=== PATIENT | male | born 1950 | race Caucasian/White ===

== ENCOUNTER 2019-10-13 10:21 | Outpatient (CLI) | payer MEDICARE, SELFPAY ==
[2019-10-13 10:15] LABS: Basophils % 0.2 %; Eosinophils # 0.1 10^3/uL (0.0-0.8); Eosinophils % 1.9 %; Hematocrit 46.5 % (42.0-52.0); Hemoglobin 15.9 g/dL (11.7-16.6); Lymphocytes % 23.2 %; Mean Corpuscular HGB Conc 34.2 g/dL (30.0-36.0); Mean Corpuscular Hemoglobin 32.8 pg (28.0-34.0); Mean Corpuscular Volume 95.9 fL (80-94); Mean Platelet Volume 10.5 fL (7.4-10.4); Monocytes # 0.4 10^3/uL (0.2-0.9); Monocytes % 10.1 %; Neutrophils # 2.7 10^3/uL (1.8-7.7); Neutrophils % 64.4 %; Nucleated Red Blood Cells % 0 %; Platelet Count 200 10^3/cmm (130-400); Red Blood Count 4.85 10^6/uL (4.1-5.3); Red Cell Distribution Width 11.8 % (12.1-15.1); White Blood Count 4.1 10^3/uL (4.0-10.0)
== END 2019-10-13 10:22 | disposition home or self-care (01) ==
LOC: ONCMED 10:21
PROVIDERS: Family Provider Family Medicine; PCP Family Medicine; Visit Provider Internal Medicine Hematology & Oncology
DX: D72.819 Decreased white blood cell count, unspecified (principal)
CPT/HCPCS: 85025

== ENCOUNTER 2019-10-14 10:59 | Outpatient (CLI) | payer MEDICARE, SELFPAY ==
--- NOTE | 2019-10-14 11:23 | ONC FU_ITS ---
Dr. Fernandez follow up note Patient: Nicholas Lopez Unit #: [id number]: 1950 Dicatated By: April Fernandez M.D.Date of Visit:Oct 14, 2019 Onc Med Follow-up/Prog Note History of Present Illness: Mr. Nicholas Lopez, is a 69 -year-old gentleman with history of mild isolated leukopenia of unknown etiology, as per patient, he never had any issues with recurrent infections, denies alcohol use, denies any history of splenomegaly, denies any history of peripheral lymphadenopathy, denies any history of night sweats fever chills, denies any weight loss, denies any recent change in medication. His CBC done on 04/01/2019 showed white blood count 3.9 normal being 4.5-10.5 hemoglobin 15.8 hematocrit 47.3 platelets 160,000 with a neutrophil 71.5% lymphocytes 23.9%. Came for follow-up, denies any specific complaints, no fever no chills no nausea no vomiting no diarrhea constipation no night sweats, no dysuria no sore throat. Medications: Eliquis 1 Tablet (of 5 mg) Oral b.i.d., Losartan Potassium 1 Tablet (of 25 mg) Oral daily Allergies: Penicillins and Sulfa Antibiotics. Review of Systems: Constitutional - Appetite is good and weight is stable. No fever, chills, hot flashes or night sweats. Energy level is good, ENMT - No sinus congestion/drainage. No mouth sores. No sore throat. No difficulty swallowing, Hematologic/Lymphatic - No abnormal bruising or bleeding, Respiratory - No shortness of breath. No cough. No pleuritic pain or hemoptysis, Cardiovascular - No angina pain. No palpitations, Gastrointestinal - No nausea or vomiting. No heartburn or acid reflux. No diarrhea or constipation. No blood in the stool or black stools, Genitourinary (M) - No dysuria or hematuria. No urinary frequency. No urgency or incontinence, Musculoskeletal - Positive for lower abdomen/back pain, Neurologic - No headache. Positive for dizziness. Positive for numbness, Psychiatric - Positive for anxiety and stress. Vital Signs: Performed on Oct 14, 2019 11:07 Height - 70.50 in Weight - 217.0 lbs (LOW) BSA - 2.17 sq.m BMI - 30.70 (HIGH) Temperature - 97.2 F (LOW) Pulse - 62 /min Respiration - 22 /min BP - 133/84 mm(hg) O2 Sat - 97 % Pain - 6 Performance Status: 0 - Fully active, able to carry on all predisease activities without restrictions. (ECOG) Physical Examination: ENMT - No oral exudates, ulcers, masses, thrush or mucositis. Oropharynx clear. Tongue normal, Respiratory - Lungs are clear to auscultation without rhonchi or wheezing, Cardiovascular - Regular rate and rhythm of heart, Abdomen - Non-tender, non-distended, Good bowel sounds. No guarding or rebound tenderness. No pulsatile masses, Extremities - no edema. Lab/Imaging: Test performed on Jul 12, 2019 09:49 WBC 3.4 10 3/uL RBC 4.61 10 6/uL HGB 15.4 g/dL HCT 44.4 % MCV 96.3 fl MCH 33.4 pg MCHC 34.7 g/dl RDW 11.5 % Platelet Count 187 10 3/cmm MPV 10.2 fl Neutrophils 2.2 10 3/uL Lymphocytes 0.8 10 3/uL Monocytes 0.3 10 3/uL Eosinophils 0.1 10 3/uL Basophils 0.0 10 3/uL Neutrophil % 64.9 % Lymphocyte % 22.9 % Monocyte % 9.8 % Eosinophil % 1.8 % Basophils % 0.3 % Impression: History of Isolated mild leukopenia with a normal hemoglobin and platelets and differential of unknown etiology. But possibilities include but not limited to, considering his age underlying myelodysplasia cannot be ruled out, or medication induced or cyclical leukopenia of unknown significance. Plan: Discussed with patient regarding his labs white blood count 4.1 hemoglobin 15.9 crit 46.5 platelets 200,000 with a normal differential Clinically, patient is doing well with no signs symptoms suggestive of infection and no B symptoms, follow-up lab shows normalization of mild leukopenia and hemoglobin and platelet count within normal range. Clinically it appears patient may have underlying early myelodysplasia causing fluctuation in white blood count . No further workup at this point rather continue to monitor return to clinic in 4 months with CBC and if counts stay stable then we'll see him on as-needed basis. Signed By: April Fernandez M.D. <<Signature on File>>
== END 2019-10-14 11:00 | disposition home or self-care (01) ==
LOC: ONCMED 11:03
PROVIDERS: Family Provider Family Medicine; PCP Family Medicine; Visit Provider Internal Medicine Hematology & Oncology
DX: D72.819 Decreased white blood cell count, unspecified (principal); Z79.01 Long term (current) use of anticoagulants
CPT/HCPCS: G0463

== ENCOUNTER 2020-02-13 14:06 | Outpatient (CLI) | payer MEDICARE, SELFPAY ==
[2020-02-13 15:22] LABS: Basophils % 0.4 %; Eosinophils # 0.1 10^3/uL (0.0-0.8); Eosinophils % 2.4 %; Hematocrit 44.8 % (42.0-52.0); Hemoglobin 15.6 g/dL (11.7-16.6); Lymphocytes # 1.2 10^3/uL (0.8-4.8); Lymphocytes % 25.4 %; Mean Corpuscular HGB Conc 34.8 g/dL (30.0-36.0); Mean Corpuscular Hemoglobin 34.4 pg (28.0-34.0); Mean Corpuscular Volume 98.7 fL (80-94); Mean Platelet Volume 10.4 fL (7.4-10.4); Monocytes # 0.5 10^3/uL (0.2-0.9); Monocytes % 11.1 %; Neutrophils # 2.77 10^3/uL (1.8-7.7); Neutrophils % 60.3 %; Nucleated Red Blood Cells % 0 %; Platelet Count 188 10^3/cmm (130-400); Red Blood Count 4.54 10^6/uL (4.1-5.3); Red Cell Distribution Width 11.9 % (12.1-15.1); White Blood Count 4.6 10^3/uL (4.0-10.0)
== END 2020-02-13 14:07 | disposition home or self-care (01) ==
LOC: ONCMED 15:27
PROVIDERS: PCP Family Medicine; Visit Provider Internal Medicine Hematology & Oncology
DX: D72.819 Decreased white blood cell count, unspecified (principal); I10 Essential (primary) hypertension; E78.1 Pure hyperglyceridemia
CPT/HCPCS: 85025

== ENCOUNTER 2020-02-14 13:06 | Outpatient (CLI) | payer MEDICARE, SELFPAY ==
--- NOTE | 2020-02-14 13:43 | ONC FU_ITS ---
Dr. Fernandez follow up note Patient: Nicholas Lopez Unit #: [id number]: 1950 Dicatated By: April Fernandez M.D.Date of Visit:Feb 14, 2020 Onc Med Follow-up/Prog Note History of Present Illness: Mr. Nicholas Lopez, is a 69 -year-old gentleman with history of mild isolated leukopenia of unknown etiology, as per patient, he never had any issues with recurrent infections, denies alcohol use, denies any history of splenomegaly, denies any history of peripheral lymphadenopathy, denies any history of night sweats fever chills, denies any weight loss, denies any recent change in medication. His CBC done on 04/01/2019 showed white blood count 3.9 normal being 4.5-10.5 hemoglobin 15.8 hematocrit 47.3 platelets 160,000 with a neutrophil 71.5% lymphocytes 23.9%. Came for follow-up, denies any specific complaints, no fever chills, no nausea or vomiting, no diarrhea or constipation, no night sweats, no abdominal pain or fullness, no sore throat or dysuria. Medications: Eliquis 1 Tablet (of 5 mg) Oral b.i.d., Losartan Potassium 1 Tablet (of 25 mg) Oral daily Allergies: Penicillins and Sulfa Antibiotics. Review of Systems: Constitutional - Appetite is good and weight is stable. No fever, chills, hot flashes or night sweats. Energy level is good, ENMT - No sinus congestion/drainage. No mouth sores. No sore throat. No difficulty swallowing, Hematologic/Lymphatic - No abnormal bruising or bleeding, Respiratory - No shortness of breath. No cough. No pleuritic pain or hemoptysis, Cardiovascular - No angina pain. No palpitations, Gastrointestinal - No nausea or vomiting. No heartburn or acid reflux. No diarrhea or constipation. No blood in the stool or black stools, Genitourinary (M) - No dysuria or hematuria. No urinary frequency. No urgency or incontinence, Musculoskeletal - No pain reported today, Neurologic - No headache. Positive for dizziness. Positive for numbness, Psychiatric - Positive for anxiety and stress. Vital Signs: Performed on Feb 14, 2020 13:12 Height - 70.50 in Weight - 220.0 lbs (HIGH) BSA - 2.18 sq.m BMI - 31.12 (HIGH) Temperature - 98.1 F (LOW) Pulse - 79 /min Respiration - 24 /min BP - 114/70 mm(hg) O2 Sat - 94 % (LOW) Pain - 0 Performance Status: 0 - Fully active, able to carry on all predisease activities without restrictions. (ECOG) Physical Examination: ENMT - No mouth sores no thrush or jaundice, Respiratory - Lungs are clear, Cardiovascular - Regular rate and rhythm of heart, Abdomen - Soft, bowel sounds present, Extremities - No visible edema, no peripheral lymphadenopathy. Lab/Imaging: Test performed on Oct 13, 2019 08:55 WBC 4.1 10 3/uL RBC 4.85 10 6/uL HGB 15.9 g/dL HCT 46.5 % MCV 95.9 fL MCH 32.8 pg MCHC 34.2 g/dL RDW 11.8 % Platelet Count 200 10 3/cmm MPV 10.5 fL Neutrophils 2.7 10 3/uL Lymphocytes 1.0 10 3/uL Monocytes 0.4 10 3/uL Eosinophils 0.1 10 3/uL Basophils 0.0 10 3/uL Neutrophil % 64.4 % Lymphocyte % 23.2 % Monocyte % 10.1 % Eosinophil % 1.9 % Basophils % 0.2 % Impression: History of Isolated mild leukopenia with a normal hemoglobin and platelets and differential of unknown etiology. But possibilities include but not limited to, considering his age underlying myelodysplasia cannot be ruled out, or medication induced or cyclical leukopenia of unknown significance. Plan: Discussed with patient regarding his labs white blood count 4.6 hemoglobin 15.6 crit 44.8 platelets 188,000 with ANC 2700 Clinically, patient is doing well with no new signs symptoms. Her follow-up labs shows resolution of previously noted mild leukopenia, now CBC is in a normal range. No further work-up is needed, patient will follow with his PMD on regular basis and will see him on as-needed basis Signed By: April Fernandez M.D. <<Signature on File>>
== END 2020-02-14 13:07 | disposition home or self-care (01) ==
LOC: ONCMED 13:10
PROVIDERS: PCP Family Medicine; Visit Provider Internal Medicine Hematology & Oncology
DX: D72.819 Decreased white blood cell count, unspecified (principal); Z79.01 Long term (current) use of anticoagulants
CPT/HCPCS: G0463

== ENCOUNTER → 2023-04-01 10:44 | Outpatient (BNVA) | payer MEDICARE, SELFPAY | PROVIDERS: PCP Family Medicine; Visit Provider Nurse Practitioner Family | DX: L57.0 Actinic keratosis (principal); L82.0 Inflamed seborrheic keratosis; L81.4 Other melanin hyperpigmentation; D22.5 Melanocytic nevi of trunk; L85.3 Xerosis cutis; L57.8 Other skin changes due to chronic exposure to nonionizing radiation; L82.1 Other seborrheic keratosis; L91.8 Other hypertrophic disorders of the skin | CPT/HCPCS: 11200; 17000; 17003; 17110; 99213 ==

== ENCOUNTER → 2023-10-02 08:30 | Outpatient (BNVA) | payer MEDICARE, SELFPAY | PROVIDERS: PCP Family Medicine; Visit Provider Nurse Practitioner Family | DX: L82.0 Inflamed seborrheic keratosis (principal); L81.4 Other melanin hyperpigmentation; D22.5 Melanocytic nevi of trunk; L85.3 Xerosis cutis; L57.8 Other skin changes due to chronic exposure to nonionizing radiation; L82.1 Other seborrheic keratosis; L57.0 Actinic keratosis | CPT/HCPCS: 17000; 17110; 99213 ==

== ENCOUNTER → 2024-04-05 10:08 | Outpatient (BNVA) | payer MEDICARE, SELFPAY | PROVIDERS: PCP Family Medicine; Visit Provider Nurse Practitioner Family | DX: L81.4 Other melanin hyperpigmentation (principal); D22.5 Melanocytic nevi of trunk; L85.3 Xerosis cutis; L57.8 Other skin changes due to chronic exposure to nonionizing radiation; L82.1 Other seborrheic keratosis; L57.0 Actinic keratosis | CPT/HCPCS: 17000; 99213 ==

== ENCOUNTER → 2024-10-03 15:25 | Outpatient (BNVA) | payer MEDICARE, SELFPAY | PROVIDERS: PCP Family Medicine; Visit Provider Nurse Practitioner Family | DX: L81.4 Other melanin hyperpigmentation (principal); D22.5 Melanocytic nevi of trunk; L57.8 Other skin changes due to chronic exposure to nonionizing radiation; L82.1 Other seborrheic keratosis; L57.0 Actinic keratosis | CPT/HCPCS: 17000; 99213 ==

== ENCOUNTER 2025-02-24 18:30 | Emergency (ER) | payer MEDICARE, SELFPAY ==
--- OUTSIDE RECORDS SUMMARY | 2025-02-24 18:43 | XMS_ITS | Continuity of Care Document ---
Author Organization [place] Da Silva [facility] [place], LKaileyLDieudonne, [facility] ([facility]) Address [address] [place] [address] Care Team Providers Care Skiver Operator Name Role Phone DAPHNE DYER Primary Care Provider [phone] Assessment No assessment recorded. Plan of Treatment Reminders Order Date Submit Date Provider Last Modified By Organization Details Last Modified Time Details Appointments OFFICE VISIT CIPRIANO 2024 09:00A Genesis Dyer MD Not available Not available Not available Lab culture , blood 2024 025 [employer] [facility], [address], [place], [address], 02/24/2025 08:18:42 shobha sial antibod y panel, serum 2024 [facility], [address] , [place], [address], 02/24/2025 08:18:42 ronan carv[facility]al lab - F. tularen sis Ab, IgM/IgG kaleigh, S 2024 025 [facility], [address] , [place], [address], 02/24/2025 08:18:42 donald ruiz nsis, igg+igm Ab, serum 2024 025 [facility], [address] , [place], [address], 02/24/2025 08:18:42 CBC 2024 025 [facility], [address] [place] [address], [address], [place], [address], 02/17/2025 13:49:51 SARS CoV 2 (COVID- 19) Ag, QL, IA, upper respira tory specime n [address] ([facility]), [address] [place] [address], [phone], 02/17/2025 13:05:27 respira tory pathoge ns DNA and RNA panel, PCR, nasopha rynx [address] ([facility]), [address] [place] [address], [phone], 02/17/2025 13:05:28 Referral None recorde d. Procedures None recorde d. Surgeries None recorde d. Imaging XR, chest, 2 view 2024 025 [email or web address] [facility] ([facility]), [address] [place] [address], [phone], 02/20/2025 09:24:52 Medication Orders ondanse lennie HCl 8 mg tablet 2024 025 [facility] [place], [address], 02/17/2025 13:06:29 doxycyc line hyclate 100 mg capsule 2024 025 [facility] [place], [address], 02/17/2025 13:06:32 prednis one 20 mg tablet 2024 025 [facility] [place], [address], 02/17/2025 13:06:31 albuter ol sulfate HFA 90 mcg/act uation aerosol inhaler 2024 025 [facility], [address] [place], [address], 02/17/2025 13:06:27 Patient TargetsNo targets recorded. Patient InstructionsNo instructions recorded. Reason for Referral None Reported. Results Created Date Observation Date Name Description Value Unit Range Abnormal Flag Note LastModifiedBy Organization Detail LastModifiedTime 02/18/2002/17/2025 CBC WBC 5.5 x10 4.5-10 .5 Not Available [facility] [address] [facility] [address], [place], [address], 02/17/2025 13:49:51 02/18/2002/17/2025 CBC RBC 4.78 x10 4.30-5 .90 Not Available [facility] [address] [facility] [address], [place], [address], 02/17/2025 13:49:51 02/18/2002/17/2025 CBC HGB 15.7 g/dL 13.5-1 8.0 Not Available [facility] [address] [facility] [address], [place], [address], 02/17/2025 13:49:51 02/18/2002/17/2025 CBC HCT 48.3 % 35.0-6 0.0 Not Available [facility] [address] [facility] [address], [place], [address], 02/17/2025 13:49:51 02/18/2002/17/2025 CBC MCV 101.1 fL 80.0-9 9.9 high Not Available [facility] [address] [facility] [address], [place], [address], 02/17/2025 13:49:51 07/18/20 25 02/17/2025 CBC MCH 32.8 pg 27.0-3 2.0 high Not Available [facility] [address] [facility] [address], [place], [address], 02/17/2025 13:49:51 02/18/20 25 02/17/2025 CBC MCHC 32.4 g/dL 32.0-3 6.0 Not Available [facility] [address] [facility] [address], [place], [address], 02/17/2025 13:49:51 02/18/20 25 02/17/2025 CBC RDW 12.2 % 11.5-1 4.5 Not Available [facility] [address] [facility] [address], [place], [address], 02/17/2025 13:49:51 02/18/2002/17/2025 CBC plt 162.1 x10 150.0- 451.0 Not Available [facility] [address] [facility] [address], [place], [address], 02/17/2025 13:49:51 02/18/2002/17/2025 CBC lymphocytes % 25.6 % 20.0-5 0.0 Not Available [facility] [address] [facility] [address], [place], [address], 02/17/2025 13:49:51 02/18/2002/17/2025 CBC granulcytes % 67.5 % 30.0-7 0.0 Not Available [facility] [address] [facility] [address], [place], [address], 02/17/2025 13:49:51 02/18/2002/17/2025 CBC monocytes % 6.1 % 2.0-16 .0 Not Available [facility] [address] [facility] [address], [place], [address], 02/17/2025 13:49:51 07/18/20 25 02/17/2025 CBC granulcytes# 3.7 x10 Not Ann ilable [facility] [address] [facility] [address], [place], [address], 02/17/2025 13:49:51 02/18/20 25 02/17/2025 CBC lymphocytes # 1.4 x10 Not Available [facility] [address] [facility] [address], [place], [address], 02/17/2025 13:49:51 02/18/20 25 02/17/2025 CBC monocytes # 0.3 x10 Not Avai lable [facility] [address] [facility] [address], [place], [address], 02/17/2025 13:49:51 02/18/20 25 02/17/2025 respi rator y patho gens DNA and RNA panel , PCR, nasop haryn x Covid negati ve Not Available [facility] ([facility]) [address] [place] [address], [phone], 02/17/2025 12:42:51 02/18/20 25 02/17/2025 respi rator y patho gens DNA and RNA panel , PCR, nasop haryn x Rhinovirus negati ve Not Available [facility] ([facility]) [address] [place] [address], [phone], 02/17/2025 12:42:51 02/18/20 25 02/17/2025 respi rator y patho gens DNA and RNA panel , PCR, nasop haryn x Influenza A negati ve Not Available [facility] ([facility]) [address] [place] [address], [phone], 02/17/2025 12:42:51 02/18/20 25 02/17/2025 respi rator y patho gens DNA and RNA panel , PCR, nasop haryn x Influenza B negati ve Not Available [facility] ([facility]) [address] [place], [address], 02/17/2025 12:42:51 02/18/20 25 02/17/2025 respi rator y patho gens DNA and RNA panel , PCR, nasop haryn x RSV negati ve Not Available [facility] ([facility]) [address] [place], [address], 02/17/2025 12:42:51 02/15/20 25 02/13/2025 XR, ribs, unila teral , w/ PA chest No observ ation record ed. [email or web address] [facility] [address] [place], [address], 02/14/2025 12:53:49 02/18/20 25 02/17/2025 XR, chest , 2 view No observ ation record ed. [email or web address] [facility] ([facility]) [address] [place], [address], 02/17/2025 14:14:11 02/18/20 25 02/17/2025 XR, chest , 2 view No observ ation record ed. [email or web address] [facility] ([facility]) [address] [place], [address], 02/17/2025 14:12:26 Result Notes None recorded. 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 5 23:51:25 Nocturia due to benign prostatic hypertrop 495572605071 1 Active 2022 Hallie Mack [facility] 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 5 23:50:36 Screening for malignant neoplasm of colon Completed 202310/31/2024 [facility] 5 23:51:40 History of deep vein thrombosi s 720560660 Active 2024 Hallie Frederick [facility] 5 23:50:47 Acute vomiting 56394690 Active 2024 [facility] 5 13:03:18 Problem Notes None recorded. Procedures Surgical History Date Name Laterality Status Provider Name and Address Organization Details Recorded Time 4 screening for malignant neoplasm of colon completed [facility] 05/16/2024 12:43:37 4 colonoscopy completed [facility] 05/04/2023 10:05:39 repair of umbilical hernia completed [facility] 05/04/2023 10:05:05 Imaging Results None recorded. Procedure Notes None recorded. Medical Equipment None Reported. Allergies Allergen ID Allergen Name Allergen Category Reaction Reaction Severity Criticality Documentation Date Start Date Code Code System Note Provider Name and Address Organization Details Recorded Time 06939 clindamyc in hydrochlo ride medicatio n rash Not available Not available 02/28/2023 57508 RxNorm React ion: Rash; Comme nt: Recor ded 04/30 7:49A M by Hallie Farnsworth RN, Offic e Visit ; Promo citlali; Roddy swan ce: *; Reaso n: Drug aller gy; ; [facility] 3 10:02:57 83023 penicilli n V potassium medicatio n Not available Not available Not available 02/28/202353108 5 RxNorm Comme nt: Recor ded 04/30 7:49A M by Hallie Farnsworth RN, Offic e Visit ; Promo citlali; Roddy swan ce: *; Reaso n: Drug aller gy; ; [facility] 3 10:02:52 624 Product containin g penicilli n (product) medicatio n rash mild low 10/29/2022 18775 8001 SNOMED Becky Krause [facility] 4 12:27:51 625 clindamyc in Not available rash mild low 10/29/2022 2582 RxNorm Becky Krause [facility] 4 12:27:47 626 Bactrim medicatio n Not available Not available Not available 10/29/2022 90076 9 RxNorm [facility] 3 10:19:24 Medications Name Sig Start Date Stop Date Status Note LastModified by Organization Details LastModified Time doxycycli ne hyclate 100 mg capsule Take 1 capsule twice a day by oral route for 10 days. 2024 active Not Available Not Available Not Avai lable benzonata te 200 mg capsule Take 1 capsule 3 times a day by oral route as needed, for cough. 2024 active Not Available Not Available Not Avai lable ondansetr on HCl 8 mg tablet Take 1 tablet 3 times a day by oral route as needed for 7 days. 2024 active Not Available Not Available Not Avai lable prednison e 20 mg tablet Take 1 tablet every day by oral route for 5 days. 2024 active Not Available Not Available Not Avai lable losartan 25 mg tablet TAKE 1 TABLET BY MOUTH ONCE DAILY active Not Available Not Available No t Available albuterol sulfate HFA 90 mcg/actua tion aerosol inhaler Inhale 2 puffs every 4 hours by inhalati on route for 14 days. 2024 active Not Available Not Available Not Avai lable cyanocoba nicolas (vitamin B-12) daily 2019 active Not Available Not Available Not Avai lable multivita min 1 daily active Not Available Not Available Not Available Eliquis 5 mg tablet TAKE 1 TABLET BY MOUTH TWICE DAILY active Not Available Not Available No t Available Eliquis two times daily 05/04 completed 436; Recorded 03/03/20 22 8:18AM by Hiral Maya LPN (Authori shae through Daphne Dyer MD), Annotati on/Adden dum; Refill Quantity : 180; Tablet; Not Available Not Available Not Available losartan potassium (bulk) daily 05/04 completed 436; Recorded 02/29/20 22 3:08PM by Hiral Maya LPN (Authori shae through Daphne Dyer MD), Refill Request; Refill Quantity : 90; Tablet; Not Available Not Available Not Available Flowflex COVID-19 Antigen Home Test kit DIRECTED 05/04 completed Not Available Not Available Not Available Vitals Date Recorded Body height Body mass index (BMI) Body weight Body temperature Oxygen saturation Oxygen saturation in Arterial blood by Pulse oximetry Heart rate Systolic And Diastolic Provider Name and Address Organization Details Last Updated DateTime 5 177.8 cm 31.4 kg/m2 93840.7 3 g 100.6 [degF] 92 % 92 % 110 /min 130/70 mm[Hg] ASHLEY GREWAL [facility] L.LDieudonne 5 11:09:10 Social History Question Answer Notes LastModified by Organizat ion Details LastModified Time Tobacco Smoking Status Never Smoker HIRAL g[place] [facility], L.LDieudonne 05/04/2023 10:04:50 What Was The Date Of Your Most Recent Tobacco Screening? 02/13/2025 [email or web address] Information not available 02/13/2025 Sex: Unknown Functional Status Question Answer Note LastModified by Organizat ion Details LastModified Time Do you use any illicit or recreational drugs? No [email or web address] Information not available 05/04/2023 Do you or have you ever used any other forms of tobacco or nicotine? No Information not available 05/04/2023 What is your level of alcohol consumption? None [email or web address] Information not available 05/04/2023 Mental Status None recorded. Family History Relationship Description Onset Age of this Age Resolved Age Notes LastModified by Organization Details LastModified Time Mother Malignant lymphoma [email or web address] Not available 05/04 10:04:08 Father Coronary atherosclero sis Not available 05/04 10:04:18 Daughter Factor V deficiency [email or web address] Not available 09/2022 10:04:33 Medical History No medical history recorded. Immunizations Vaccine Type Date Status Note Provider Nam e and Address Organization Details Recorded Time Tdap 4 completed HIRAL gilbert [facility], MarisaLDieudonne 05/04/2023 10:02:43 pneumococcal polysaccharide PPV23 8 tracy gilbert [facility], LKaileyLKaileyCKailey 05/04/2023 10:02:43 Influenza, split virus, trivalent, preservative 8 completed HIRAL gilbert [facility], L.LKaileyCKailey 05/04/2023 10:02:43 Pneumococcal conjugate PCV 13 7 tracy gilbert [facility], L.LKaileyCKailey 05/04/2023 10:02:43 Past Encounters Encounter ID Performer Location Encounter Start Date Encounter Closed Date Diagnosis/Indication Diagnosis SNOMED-CT Code Diagnosis ICD10 Code Diagnosis Note [id number] AGUILAR FISCHER [facility] ([facility]) [address] [place] [address] 02/13/2025 12:21:10 02/13/2025 13:17:50 Accidental fall 739071193 W19.XXXA Discussed xray with pt. VSS. Pain improving. Continue deep breathing exercises every 3-4 hours while awake. Limit movements as tolerated. If you develop fever, sputum production , sob, or worsening symptoms then return. Acute cough 6220211206 33560935 R05.1 [id number] Daphne Dyer MD [facility] ([facility]) [address] [place] [address] 02/17/2025 10:46:20 02/20/2025 09:24:52 Viral upper respiratory tract infection 412349249 J06.9 Acute bronchitis 7060453 2 J20.9 Fever with chills 130080 006 R50.9 Acute vomiting 72175261 R11.10 Health Concerns Section Related Observation LastModified by Organization Detai ls LastModified Time None Recorded Concern Status LastModified by Organization Details LastModified Time None Recorded Payers Encounter Date Sequence Insurance Name Policy Number Policy Pérez Covered Member ID Pérez Member ID Guarantor Name 02/17/2025 1 [employer] (MEDICARE REPLACEMENT/A DVANTAGE - PFFS) Nicholas Lopez [id number] Nicholas Lopez Notes Date Note Type Note Provider Name and Address Organization Details Recorded Time 02/17/2025 text/html Upper Respirator y SymptomsReported by PatientUpper Respiratory SymptomsFor quality, patient reportsdry coughandwheezy cough. For associated symptoms, patient reportsshortness of breath,wheezing,fatigu e,headache, andmalaise. For location, patient reportschest. For context, patient reportsnon-smoker.ROS as noted in the HPI Daphne Dyer MD [address] [place] [address], [phone], [facility] 02/17/2025 13:06:37
--- OUTSIDE RECORDS SUMMARY | 2025-02-24 18:43 | XMS_ITS | Patient Health Record ---
Author Organization [facility] Address [address] [place] [address] Care Team Providers Care Pruner Name Role Phone Peter Cho Unavailable Allergies Allergen (clinical drug ingredient) Drug/Non Drug Allergy documented on EMR Reaction Allergy Type Onset Date Status amoxicillin Amoxicillin Unknown Drug Allergy Act laurie ampicillin Ampicillin Unknown Drug Allergy Activ e Penicillin Unknown Drug Allergy Active Reason For Referral Reason ESOPHAGEAL DYSPHAGIA Diagnosis 1 Other dysphagia (R13 .19) Referring Provider First Name Dakota Referring Provider Last Name Gomez Referring Provider Speciality Family Med icine Referred Organization [facility] Referred Provider Peter Cho Referred Address [address],[phone], Referral Priority Routine Medications Medication SIG (Take, Route, Frequency, Duration) Notes Start Date End Date Status Eliquis 5 MG Tablet as directed Orally Active Losartan Potassium 25 MG Tablet 1 tablet Orally TWICE a day Active Social History Tobacco Use: Social History Observation Description Date Details (start date - stop date) Never Smoker NA - NA Social History Depression Screening Social Info Question Answer Notes depression screening findings Findings Negative (0-4) Completed 05/17/24 PHQ-9 Little interest or pleasure in doing things Not at all Feeling down, depressed, or hopeless Not at all Trouble falling or staying asleep, or sleeping t oo much Not at all Feeling tired or having little energy Not at all Poor appetite or overeating Not at all Feeling bad about yourself, or that you are a failure, or have let yourself or your family down Not at all Trouble concentrating on thi ngs, such as reading the newspaper or watching television Not at all Moving or speaking so slowly that other people could have noticed. Or the opposite ? being so fidgety or restless that you have been moving around a lot more than usual Not at all Thoughts that you would be b dana off , or of hurting yourself in some way Not at all Total Score 0 Drugs/Alcohol: Social Info Question Answer Notes Drugs Have you used drugs other than those for medical reasons in the past 12 months? No Drug/Alcohol: Social Info Question Answer Notes AUDIT-C (Standard) Did you have a drink containing alcohol in the past year? No Points 0 Interpretation Negative Tobacco Use: Social Info Question Answer Notes Tobacco Control (Standard) Tobacco use: Nonsmoker Section Notes: 05/17/24 Problems Problem Type SNOMED Code ICD Code Onset Dates Problem Status W/U Status Risk Notes Problem Esophageal dysphagia (93117524) Esophageal dysphagia (R13.19) Active confirmed Vital Signs Heart Rate 66 /min 05/17/2024 Temperature 97.2 degrees Fahrenheit 05/17/2024 Height-cm 180.34 cm 05/17/2024 Oximetry 95 % 05/17/2024 Blood pressure diastolic 90 mm Hg 05/17/2024 Weight-kg 102.24 kg 05/17/2024 Height 71 in 05/17/2024 Blood pressure systolic 160 mm Hg 05/17/2024 Weight 225.4 lbs 05/17/2024 BMI 31.43 kg/m2 05/17/2024 Encounters Encounter Location Date Provider Diagnosis [facility] [address] [place] [phone] 05/17/2024 Peter Cho Esophageal dysphagia R13.19 and Depression screen Z13.31 [facility] [address] [place] [phone] 05/17/2024 Peter Cho Assessments Encounter Date Diagnosis (ICD Code) Assessment Notes Treatment Notes Treatment Clinical Notes Section Notes 05/17/2024 Esophageal dysphagia (ICD-10 - R13.19) -x-- to be completed at [facility] ---to be completed at [facility] ---to be completed at [facility] ---to be completed at [facility] 05/17/2024 Depression screen (ICD-10 - Z13.31) Plan Of Treatment No Information Insurance Providers Payer Name Payer Address Payer Phone Subscriber Number Group Number Insured Name Patient Relationship to Insured Coverage Start Date Coverage End Date [employer] Medicare Replacement [address] [address] [place] [phone] [id number] Self - patient is the insured [place] [address] [address] [place] [address] [id number] JARROD NIXON Self - patient is the insured Medical (General) History Medical History History ICD Code hypertension Surgical History Surgery Date(Month/Year) hernia repair
--- NOTE | 2025-02-24 18:55 | XRR_ITS ---
PROCEDURE INFORMATION: Exam: XR Chest Exam date and time: 02/24/2025 7:07 PM Age: 74 years old Clinical indication: Fever; Additional info: Fever, weak TECHNIQUE: Imaging protocol: Radiologic exam of the chest. Views: 1 view. COMPARISON: CR XR chest 2V* [id number] 02/17/2025 11:16 AM FINDINGS: Lungs: Unremarkable. No consolidation. Pleural spaces: Unremarkable. No pleural effusion. No pneumothorax. Heart/Mediastinum: Unremarkable. No cardiomegaly. Bones/joints: Unremarkable. XR/XR chest 1V portable [id number] IMPRESSION: No acute findings.
[2025-02-24 19:01] VITALS: BP 121/73; PULSE 101; RESP 16; TEMP 37.6; O2SAT 93; BMI 30.1
[2025-02-24 19:33] LABS: Hematocrit 40.6 % (37-53); Hemoglobin 14.10 g/dL (11.27-16.99); Mean Corpuscular HGB Conc 34.7 g/dL (30-55); Mean Corpuscular Hemoglobin 33.9 pg (27-33); Mean Corpuscular Volume 97.6 fl (82-101); Nucleated Red Blood Cells % 0 %; Platelet Count 178 10^3/cmm (157-399); Red Blood Count 4.16 10^6/uL (3.85-5.65); White Blood Count 6.10 10^3/uL (3.29-11.43)
[2025-02-24 19:58] LABS: Alanine Aminotransferase 34 U/L (0-41); Albumin Level 3.5 g/dL (3.5-5.2); Alkaline Phosphatase 68 U/L (40-130); Anion Gap 15.2 (5-19); Aspartate Amino Transferase 18 U/L (0-40); Blood Urea Nitrogen 14 mg/dL (8-23); Calcium 8.8 mg/dL (8.5-10.5); Carbon Dioxide 25 mmol/L (22-29); Chloride 98 mmol/L (98-107); Creatinine Clr Calc Pharmacy 73.9389; Globulin 3.4 g/dL (1.3-4.6); Glucose 128 mg/dL (65-115); Osmolality Calculated 280 mOsm/kg (285-295); Potassium 4.2 mmol/L (3.5-5.1); Sodium 134 mmol/L (136-145); Total Protein 6.9 g/dL (6.6-8.7)
[2025-02-24 19:58] LABS: Respiratory Syncytial Virus Ce NEGATIVE (Negative); SARS-CoV-2 PCR NEGATIVE (Negative)
[2025-02-24 20:03] LABS: Procalcitonin 0.21 ng/mL (0-0.5)
--- NOTE | 2025-02-24 22:05 | W.ED.FEVER ---
Documented by User: Jacki Whipple MD 02/24/25 22:21 HPI - Fever General: Chief Complaint: Fever Stated Complaint: Dr el low grade fever coughing weakness Time Seen by Provider: 02/24/25 22:04 History of Present Illness: 74-year-old man with a history of hypertension and clotting disorder and chronic anticoagulation on Eliquis who presents to the emergency room at the urging of his doctor with low-grade fevers, cough and fatigue for the last 6 weeks. He has had some mild cough. His doctor put him on doxycycline. 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 He is not having chest pain. Is a temp of 99 7 on presentation here. No known tick bites. No abdominal pain. No vomiting. No dysuria. Related Data Home Medications ?Medication ?Instructions ?Recorded ?Confirmed apixaban 5 mg tablet (Eliquis) 5 mg PO BID 09/18/22 09/18/22 Previous Rx's ?Medication ?Instructions ?Recorded levofloxacin 750 mg tablet 750 mg PO DAILY 7 days #7 tabs 02/25/25 Allergies Allergy/AdvReac Type Severity Reaction Status Date / Time penicillin G Allergy hives Verified 02/24/25 19:04 Sulfa (Sulfonamide Allergy unk Verified 02/24/25 19:04 Antibiotics) Review of Systems Narrative: Constitutional symptoms: Negative except as documented in HPI. Skin symptoms: Negative except as documented in HPI. Eye symptoms: Negative except as documented in HPI. ENMT symptoms: Negative except as documented in HPI. Respiratory symptoms: Negative except as documented in HPI. Cardiovascular symptoms: Negative except as documented in HPI. Gastrointestinal symptoms: Negative except as documented in HPI. Genitourinary symptoms: Negative except as documented in HPI. Musculoskeletal symptoms: Negative except as documented in HPI. Neurologic symptoms: Negative except as documented in HPI. Psychiatric symptoms: Negative except as documented in HPI. Endocrine symptoms: Negative except as documented in HPI. PFSH ED PFSH: Medical History (Updated 02/25/25 @ 00:00 by Franklin De Paz DO) HTN (hypertension) History of blood clotting disorder Surgical History No pertinent past surgical history Social History (Reviewed 09/18/22 @ 14:55 by Ellyn Pereira Smoking and tobacco/nicotine status: never used tobacco/nicotine Physical Exam Narrative: EXAM NARRATIVE: General: Alert, no acute distress. Skin: Warm, dry. Head: Normocephalic, atraumatic. Neck: Supple, trachea midline. Eye: Extraocular movements are intact. Ears, nose, mouth and throat: mucosa moist. Cardiovascular: Regular, Normal peripheral perfusion. Respiratory: Lungs are clear to auscultation, respirations are non-labored, breath sounds are equal, Symmetrical chest wall expansion. Gastrointestinal: Soft, Nontender, Non distended Musculoskeletal: Normal ROM, no deformity. Neurological: Alert and oriented, No focal neurological deficit observed. Psychiatric: Cooperative, appropriate mood & affect. Course Vital Signs: Vital signs: Vital Signs Temperature 99.7 F H 02/24/25 19:01 Pulse Rate 89 02/25/25 00:21 Respiratory Rate 16 02/24/25 19:01 Blood Pressure 106/59 02/25/25 00:21 Pulse Oximetry 94 02/25/25 00:21 Oxygen Delivery Me thod Room Air 02/24/25 19:01 MDM - Fever Medical Decision Making Medical decision making: Differential diagnosis including but not limited to and based on the above HPI, review of systems and physical exam: In this patient with fever of unknown origin would have concern for recurrent PE although he has been taking his Eliquis. Tick fever except for he has been on doxycycline already. Going to get a CT to evaluate for PE, pneumonia, malignancy etc. Orders placed to evaluate differential diagnosis based on the above differential, HPI and physical exam Lab Review: Laboratory results were reviewed and interpreted by myself the emergency room physician. No leukocytosis. No anemia. No renal failure. Urinalysis pending at shift change. Patient care transitioned to Dr. De Paz at shift change. Lab Data 02/24/25 19:14 02/24/25 19:14 Radiology Impressions Chest X-Ray 02/24/25 18:55 IMPRESSION: No acute findings. Chest/Abdomen/Pelvis CT 02/24/25 22:18 IMPRESSION: Very mild focus of ground-glass opacity within posterior left lower lobe, which likely represents atelectasis, however developing infiltrate can not be excluded. IMPRESSION: 1. Multiple nondilated fluid-filled loops of small bowel, nonspecific findings but may be seen with enteritis of infectious/inflammatory etiology. 2. Colonic diverticulosis without CT evidence of acute diverticulitis. COMMENTS: Consistent with the [employer]'s Incidental Findings Committee white paper (J Am Patito Radiol 2018): Any incidental renal lesion less than 1 cm or classified as too small to characterize, or any incidental cystic renal lesion characterized as simple-appearing, is likely benign. No follow-up imaging is recommended for these lesions per consensus recommendations based on imaging criteria. Laboratory Results WBC 6.10 10^3/uL (3.29-11.43) 02/24/25 19:14 RBC 4.16 10^6/uL (3.85-5.65) 02/24/25 19:14 Hgb 14.10 g/dL (11.27-16.99) 02/24/25 19:14 Hct 40.6 % (37-53) 02/24/25 19:14 MCV 97.6 fl (82-101) 02/24/25 19:14 MCH 33.9 pg (27-33) H 02/24/25 19:14 MCHC 34.7 g/dL (30-55) 02/24/25 19:14 RDW 12.2 % (12.1-15.1) 02/24/25 19:14 Plt Count 178 10^3/cmm (157-399) 02/24/25 19:14 MPV 9.4 fL (7.4-10.4) 02/24/25 19:14 Neut % (Auto) 64.0 % 02/24/25 19:14 Lymph % (Auto) 24.9 % 02/24/25 19:14 Cuming % (Auto) 9.5 % 02/24/25 19:14 Eos % (Auto) 0.7 % 02/24/25 19:14 Baso % (Auto) 0.2 % 02/24/25 19:14 Neut # (Auto) 3.91 10^3/uL (1.8-7.7) 02/24/25 19:14 Lymph # (Auto) 1.5 10^3/uL (0.8-4.8) 02/24/25 19:14 Cuming # (Auto) 0.6 10^3/uL (0.2-0.9) 02/24/25 19:14 Eos # (Auto) 0.0 10^3/uL (0.0-0.8) 02/24/25 19:14 Baso # (Auto) 0.0 10^3/uL (0.0-0.1) 02/24/25 19:14 Nucleated RBC % (auto) 0 % 02/24/25 19:14 Nucleated RBCs # 0.0 /100WBC 02/24/25 19:14 Sodium 134 mmol/L (136-145) L 02/24/25 19:14 Potassium 4.2 mmol/L (3.5-5.1) 02/24/25 19:14 Chloride 98 mmol/L (98-107) 02/24/25 19:14 Carbon Dioxide 25 mmol/L (22-29) 02/24/25 19:14 Anion Gap 15.2 (5-19) 02/24/25 19:14 BUN 14 mg/dL (8-23) 02/24/25 19:14 Creatinine 1.0 mg/dL (0.7-1.2) 02/24/25 19:14 GFR Calculation Not Reportable 02/24/25 19:14 Glucose 128 mg/dL (65-115) H 02/24/25 19:14 Calculated Osmolality 280 mOsm/kg (285-295) L 02/24/25 19:14 Lactic Acid 0.7 mmol/L (0.5-2.2) 02/24/25 23:12 Calcium 8.8 mg/dL (8.5-10.5) 02/24/25 19:14 Total Bilirubin 0.9 mg/dL (0.15-1.2) 02/24/25 19:14 AST 18 U/L (0-40) 02/24/25 19:14 ALT 34 U/L (0-41) 02/24/25 19:14 Alkaline Phosphatase 68 U/L (40-130) 02/24/25 19:14 Total Protein 6.9 g/dL (6.6-8.7) 02/24/25 19:14 Albumin 3.5 g/dL (3.5-5.2) 02/24/25 19:14 Globulin 3.4 g/dL (1.3-4.6) 02/24/25 19:14 Procalcitonin 0.21 ng/mL (0-0.5) 02/24/25 19:14 Urine Color Yellow (Yellow) 02/24/25 22: Urine Appearance Clear (CLEAR) 02/24/25 22: Urine pH 6.0 (5-7) 02/24/25 22:28 Ur Specific [place] 1.018 (1.005-1.030) 02/24/25 22: Urine Protein Negative (Negative) 02/24/25 22: Urine Glucose (UA) Negative (Normal) 02/24/25 22: Urine Ketones Negative (Negative) 02/24/25 22: Urine Blood Negative (Negative) 02/24/25 22: Urine Nitrate Negative (Negative) 02/24/25 22: Urine Bilirubin Negative (Negative) 02/24/25 22: Urine Urobilinogen 1.0 mg/dL (Negative) 02/24/25 22:28 Ur Leukocyte Esterase Negative (Negative) 02/24/25 22:28 Urine RBC 0-2 /hpf (0-2) 02/24/25 22:28 Urine WBC 0-5 /hpf (0-5) 02/24/25 22:28 Ur Squamous Epith Cells 0-5 /hpf (0-5) 02/24/25 22:28 Amorphous Sediment Not Reportable 02/24/25 22:28 Urine Bacteria None seen /hpf (NONE) 02/24/25 22:28 Hyaline Casts 0-4 /lpf H 02/24/25 22:28 Influenza A (PCR) Negative (Negative) 02/24/25 19:06 Influenza Type B (PCR) Negative (Negative) 02/24/25 19:06 RSV (PCR) Negative (Negative) 02/24/25 19:06 SARS-CoV-2 (PCR) Negative (Negative) 02/24/25 19:06 Discharge Plan Discharge Patient Disposition: Home Clinical Impression: Community acquired pneumonia Condition: Stable Prescriptions: New levofloxacin 750 mg tablet 750 mg PO DAILY 7 Days Qty: 7 0RF No Action Eliquis 5 mg tablet 5 mg PO BID Discharge Orders: Discharge ED (Routine); Ordered 02/25/25 Ordered By: Franklin De Paz Referrals: Dakota Dyer MD [Primary Care Provider, Family Practice] - 1-3 days Patient Instructions: Pneumonia (ED), Opioid Safety, Pain Management, Patient Portal & Renita Instructions Activity Restrictions/Additional Instructions: Add second antibiotic as directed. Return for worsening symptoms despite treatment including ongoing fevers despite treatment. Call your doctor Thursday and let them know you were seen here with continued fever. They may wish to see you in follow-up. Print Language: Cook Islander Coding Level of Care Code ED [employer] for Chg Fwd Documented by User: Franklin De Paz DO 02/25/25 01:31 HPI - Fever General: Chief Complaint: Fever Stated Complaint: Dr el low grade fever coughing weakness Time Seen by Provider: 02/24/25 22:04 Related Data Home Medications ?Medication ?Instructions ?Recorded ?Confirmed apixaban 5 mg tablet (Eliquis) 5 mg PO BID 09/18/22 09/18/22 Previous Rx's ?Medication ?Instructions ?Recorded levofloxacin 750 mg tablet 750 mg PO DAILY 7 days #7 tabs 02/25/25 Allergies Allergy/AdvReac Type Severity Reaction Status Date / Time penicillin G Allergy hives Verified 02/24/25 19:04 Sulfa (Sulfonamide Allergy unk Verified 02/24/25 19:04 Antibiotics) PFS ED PFSH: Medical History (Updated 02/25/25 @ 00:00 by Franklin De Paz DO) HTN (hypertension) History of blood clotting disorder Surgical History No pertinent past surgical history Social History Smoking and tobacco/nicotine status: never used tobacco/nicotine Course Vital Signs: Vital signs: Vital Signs Temperature 99.7 F H 02/24/25 19:01 Pulse Rate 89 02/25/25 00:21 Respiratory Rate 16 02/24/25 19:01 Blood Pressure 106/59 02/25/25 00:21 Pulse Oximetry 94 02/25/25 00:21 Oxygen Delivery Me thod Room Air 02/24/25 19:01 MDM - Fever Medical Decision Making Medical decision making: Differential diagnosis including but not limited to and based on the above HPI, review of systems and physical exam: In this patient with fever of unknown origin would have concern for recurrent PE although he has been taking his Eliquis. Tick fever except for he has been on doxycycline already. Going to get a CT to evaluate for PE, pneumonia, malignancy etc. Orders placed to evaluate differential diagnosis based on the above differential, HPI and physical exam Lab Review: Laboratory results were reviewed and interpreted by myself the emergency room physician. No leukocytosis. No anemia. No renal failure. Urinalysis pending at shift change. Patient care transitioned to Dr. De Paz at shift change. Urinalysis is negative for infection. CTA does show a mild focus of groundglass opacity with posterior left lower lobe which may represent an ongoing pneumonia. He has multiple nondilated fluid loops of small bowel and nonspecific findings. On further interview, the patient took a laxative yesterday and has had some loose stool today. This may be the culprit in terms of that. He has been on doxycycline for 7 days. Still running temperatures. Will add Levaquin. Outpatient follow-up. He is not septic. Patient and family agree to plan. Return for worsening symptoms. Lab Data 02/24/25 19:14 02/24/25 19:14 Radiology Impressions Chest X-Ray 02/24/25 18:55 IMPRESSION: No acute findings. Chest/Abdomen/Pelvis CT 02/24/25 22:18 IMPRESSION: Very mild focus of ground-glass opacity within posterior left lower lobe, which likely represents atelectasis, however developing infiltrate can not be excluded. IMPRESSION: 1. Multiple nondilated fluid-filled loops of small bowel, nonspecific findings but may be seen with enteritis of infectious/inflammatory etiology. 2. Colonic diverticulosis without CT evidence of acute diverticulitis. COMMENTS: Consistent with the [employer]'s Incidental Findings Committee white paper (J Am Patito Radiol 2018): Any incidental renal lesion less than 1 cm or classified as too small to characterize, or any incidental cystic renal lesion characterized as simple-appearing, is likely benign. No follow-up imaging is recommended for these lesions per consensus recommendations based on imaging criteria. Laboratory Results WBC 6.10 10^3/uL (3.29-11.43) 02/24/25 19:14 RBC 4.16 10^6/uL (3.85-5.65) 02/24/25 19:14 Hgb 14.10 g/dL (11.27-16.99) 02/24/25 19:14 Hct 40.6 % (37-53) 02/24/25 19:14 MCV 97.6 fl (82-101) 02/24/25 19:14 MCH 33.9 pg (27-33) H 02/24/25 19:14 MCHC 34.7 g/dL (30-55) 02/24/25 19:14 RDW 12.2 % (12.1-15.1) 02/24/25 19:14 Plt Count 178 10^3/cmm (157-399) 02/24/25 19:14 MPV 9.4 fL (7.4-10.4) 02/24/25 19:14 Neut % (Auto) 64.0 % 02/24/25 19:14 Lymph % (Auto) 24.9 % 02/24/25 19:14 Cuming % (Auto) 9.5 % 02/24/25 19:14 Eos % (Auto) 0.7 % 02/24/25 19:14 Baso % (Auto) 0.2 % 02/24/25 19:14 Neut # (Auto) 3.91 10^3/uL (1.8-7.7) 02/24/25 19:14 Lymph # (Auto) 1.5 10^3/uL (0.8-4.8) 02/24/25 19:14 Cuming # (Auto) 0.6 10^3/uL (0.2-0.9) 02/24/25 19:14 Eos # (Auto) 0.0 10^3/uL (0.0-0.8) 02/24/25 19:14 Baso # (Auto) 0.0 10^3/uL (0.0-0.1) 02/24/25 19:14 Nucleated RBC % (auto) 0 % 02/24/25 19:14 Nucleated RBCs # 0.0 /100WBC 02/24/25 19:14 Sodium 134 mmol/L (136-145) L 02/24/25 19:14 Potassium 4.2 mmol/L (3.5-5.1) 02/24/25 19:14 Chloride 98 mmol/L (98-107) 02/24/25 19:14 Carbon Dioxide 25 mmol/L (22-29) 02/24/25 19:14 Anion Gap 15.2 (5-19) 02/24/25 19:14 BUN 14 mg/dL (8-23) 02/24/25 19:14 Creatinine 1.0 mg/dL (0.7-1.2) 02/24/25 19:14 GFR Calculation Not Reportable 02/24/25 19:14 Glucose 128 mg/dL (65-115) H 02/24/25 19:14 Calculated Osmolality 280 mOsm/kg (285-295) L 02/24/25 19:14 Lactic Acid 0.7 mmol/L (0.5-2.2) 02/24/25 23:12 Calcium 8.8 mg/dL (8.5-10.5) 02/24/25 19:14 Total Bilirubin 0.9 mg/dL (0.15-1.2) 02/24/25 19:14 AST 18 U/L (0-40) 02/24/25 19:14 ALT 34 U/L (0-41) 02/24/25 19:14 Alkaline Phosphatase 68 U/L (40-130) 02/24/25 19:14 Total Protein 6.9 g/dL (6.6-8.7) 02/24/25 19:14 Albumin 3.5 g/dL (3.5-5.2) 02/24/25 19:14 Globulin 3.4 g/dL (1.3-4.6) 02/24/25 19:14 Procalcitonin 0.21 ng/mL (0-0.5) 02/24/25 19:14 Urine Color Yellow (Yellow) 02/24/25 22:28 Urine Appearance Clear (CLEAR) 02/24/25 22:28 Urine pH 6.0 (5-7) 02/24/25 22:28 Ur Specific [place] 1.018 (1.005-1.030) 02/24/25 22:28 Urine Protein Negative (Negative) 02/24/25 22:28 Urine Glucose (UA) Negative (Normal) 02/24/25 22:28 Urine Ketones Negative (Negative) 02/24/25 22:28 Urine Blood Negative (Negative) 02/24/25 22:28 Urine Nitrate Negative (Negative) 02/24/25 22:28 Urine Bilirubin Negative (Negative) 02/24/25 22:28 Urine Urobilinogen 1.0 mg/dL (Negative) 02/24/25 22:28 Ur Leukocyte Esterase Negative (Negative) 02/24/25 22:28 Urine RBC 0-2 /hpf (0-2) 02/24/25 22:28 Urine WBC 0-5 /hpf (0-5) 02/24/25 22:28 Ur Squamous Epith Cells 0-5 /hpf (0-5) 02/24/25 22: Amorphous Sediment Not Reportable 02/24/25 22:28 Urine Bacteria None seen /hpf (NONE) 02/24/25 22:28 Hyaline Casts 0-4 /lpf H 02/24/25 22:28 Influenza A (PCR) Negative (Negative) 02/24/25 19:06 Influenza Type B (PCR) Negative (Negative) 02/24/25 19:06 RSV (PCR) Negative (Negative) 02/24/25 19:06 SARS-CoV-2 (PCR) Negative (Negative) 02/24/25 19:06 All radiology interpretation(s) finalized by discharge Discharge Plan Discharge Patient Disposition: Home Clinical Impression: Community acquired pneumonia Condition: Stable Prescriptions: New levofloxacin 750 mg tablet 750 mg PO DAILY 7 Days Qty: 7 0RF No Action Eliquis 5 mg tablet 5 mg PO BID Discharge Orders: Discharge ED (Routine); Ordered 02/25/25 Ordered By: Franklin De Paz Referrals: Dakota Dyer MD [Primary Care Provider, Family Practice] - 1-3 days Patient Instructions: Pneumonia (ED), Opioid Safety, Pain Management, Patient Portal & Renita Instructions Activity Restrictions/Additional Instructions: Add second antibiotic as directed. Return for worsening symptoms despite treatment including ongoing fevers despite treatment. Call your doctor Thursday and let them know you were seen here with continued fever. They may wish to see you in follow-up. Print Language: [place] Islander Coding Level of Care Code ED [employer] for Ani Sullivan
[2025-02-24 22:10] VITALS: BP 111/86; PULSE 97; O2SAT 93
--- NOTE | 2025-02-24 22:18 | CTR_ITS ---
PROCEDURE INFORMATION: Exam: CTA Chest With Contrast Exam date and time: 02/24/2025 10:30 PM Age: 74 years old Clinical indication: Cough with fever. History of clotting disorder. ; Additional info: Fever, clotting disorder TECHNIQUE: Imaging protocol: Computed tomographic angiography of the chest with contrast. Exam focused on the arteries. 3D rendering (Not supervised by radiologist): MIP and/or 3D reconstructed images were created by the technologist. Radiation optimization: All CT scans at this facility use at least one of these dose optimization techniques: automated exposure control; mA and/or kV adjustment per patient size (includes targeted exams where dose is matched to clinical indication); or iterative reconstruction. Contrast material: OMNI 350; Contrast volume: 100 ml; Contrast route: INTRAVENOUS (IV); COMPARISON: CR (CHEST, ) 02/24/2025 7:07 PM RADIATION DOSE METRICS: Total DLP (mGy-cm): 1400.39 FINDINGS: Pulmonary arteries: Normal. No pulmonary emboli. Aorta: Unremarkable. No aortic aneurysm. No aortic dissection. Lungs: Minimal ground-glass opacity within posterior left lower lobe. Pleural spaces: Unremarkable. No pneumothorax. No pleural effusion. Heart: Unremarkable. No cardiomegaly. No pericardial effusion. Lymph nodes: Unremarkable. No enlarged lymph nodes. Bones/joints: Unremarkable. No acute fracture. Soft tissues: Unremarkable. PROCEDURE INFORMATION: Exam: CT Abdomen And Pelvis With Contrast Exam date and time: 02/24/2025 10:30 PM Age: 74 years old Clinical indication: Cough with fever. History of clotting disorder. ; Additional info: Fever, clotting disorder TECHNIQUE: Imaging protocol: Computed tomography of the abdomen and pelvis with contrast. Radiation optimization: All CT scans at this facility use at least one of these dose optimization techniques: automated exposure control; mA and/or kV adjustment per patient size (includes targeted exams where dose is matched to clinical indication); or iterative reconstruction. Contrast material: OMNI 350; Contrast volume: 100 ml; Contrast route: INTRAVENOUS (IV); COMPARISON: CR (CHEST, ) 02/24/2025 7:07 PM RADIATION DOSE METRICS: Total DLP (mGy-cm): 1400.39 FINDINGS: Liver: Normal. No mass. Gallbladder and biliary ducts: Normal. No calcified stones. No ductal dilation. Pancreas: Normal. No ductal dilation. Spleen: Normal. No splenomegaly. Adrenal glands: Normal. No mass. Kidneys and ureters: Subcentimeter bilateral renal hypodensities. These are not completely characterized but are likely benign cysts. In the absence of risk factors, no further workup is recommended. No obstructing calculi. Stomach and bowel: Few nondilated fluid-filled loops of small bowel are scattered throughout the abdomen. Extensive colonic stool burden. Colonic diverticulosis without definite CT evidence of acute diverticulitis. Appendix: No evidence of appendicitis. Intraperitoneal space: Unremarkable. No free air. No significant fluid collection. Vasculature: Severe atherosclerosis of the abdominal aorta. Lymph nodes: Unremarkable. No enlarged lymph nodes. Urinary bladder: Unremarkable as visualized. Reproductive: Unremarkable as visualized. Bones/joints: Multilevel degenerative changes within visualized spine. Soft tissues: Unremarkable. CT/CT angio chest w abd pel w con IMPRESSION: Very mild focus of ground-glass opacity within posterior left lower lobe, which likely represents atelectasis, however developing infiltrate can not be excluded. IMPRESSION: 1. Multiple nondilated fluid-filled loops of small bowel, nonspecific findings but may be seen with enteritis of infectious/inflammatory etiology. 2. Colonic diverticulosis without CT evidence of acute diverticulitis. COMMENTS: Consistent with the [employer]'s Incidental Findings Committee white paper (J Am Patito Radiol 2018): Any incidental renal lesion less than 1 cm or classified as too small to characterize, or any incidental cystic renal lesion characterized as simple-appearing, is likely benign. No follow-up imaging is recommended for these lesions per consensus recommendations based on imaging criteria.
[2025-02-24] MEDS: iohexol 350 mg/mL 500 mL Btl (per mL) IV (22:32)
[2025-02-24 22:40] LABS: Glucose Urine UA Negative (Normal); Nitrate Urine Negative (Negative); Specific Gravity, Urine 1.018 (1.005-1.030)
[2025-02-24 22:43] VITALS: BP 108/53; PULSE 85; O2SAT 94
[2025-02-24 22:44] LABS: Add Urine Microscopic? YES
[2025-02-24 23:00] VITALS: BP 111/69; PULSE 83; O2SAT 94
[2025-02-24 23:30] VITALS: BP 109/64; PULSE 84; O2SAT 91
[2025-02-24 23:38] LABS: Lactic Sepsis W/Reflex 0.7 mmol/L (0.5-2.2)
[2025-02-25 00:21] VITALS: BP 106/59; PULSE 89; O2SAT 94
== END 2025-02-25 00:23 | disposition home or self-care (01) ==
PROVIDERS: Emergency Medicine; Physician Assistant; Emergency Provider Emergency Medicine; PCP Family Medicine
DX: J18.9 Pneumonia, unspecified organism (principal); Z79.01 Long term (current) use of anticoagulants; I10 Essential (primary) hypertension; Z11.52 Encounter for screening for COVID-19
CPT/HCPCS: 36415; 71045; 71275; 74177; 80053; 81001; 83605; 84145; 85025; 87637; 99285; J9999

== ENCOUNTER → 2025-03-21 15:31 | Outpatient (BNVA) | payer MEDICARE, SELFPAY | PROVIDERS: PCP Family Medicine; Visit Provider Nurse Practitioner Family | DX: L57.8 Other skin changes due to chronic exposure to nonionizing radiation (principal); L81.4 Other melanin hyperpigmentation; D22.5 Melanocytic nevi of trunk; L82.1 Other seborrheic keratosis; L57.0 Actinic keratosis | CPT/HCPCS: 17000; 99213 ==